=== PATIENT | female | born 1925 | race Caucasian/White ===

== ENCOUNTER 2016-06-30 17:32 | Inpatient (IN) | payer OTHER, BC ==
[~2016-06-30] VITALS: Ht 165.1 cm; Wt 60.5 kg
[~2016-06-30 17:32] MED LIST: ACETAMINOPHEN500 MG PO; AMLODIPINE BESYL5 MG PO; ASPIRIN325 MG PO; ATENOLOL50 MG PO; CLONAZEPAM0.5 MG PO; HYDROCHLOROTHIA25 MG PO; LOVASTATIN20 MG PO; MAG-OXIDE400 MG PO; METFORMIN HCL500 MG PO; OMEPRAZOLE20 MG PO; VITAMIN D PO
[2016-06-30 18:11] LABS: HEMATOCRIT 42.4 % (36.0-46.0); MCH 25.4 PG (29.0-34.0); MCHC 31.1 G/DL (30.0-36.0); MCV 81.5 FL (83-99); MEAN PLAT.VOLUME 10.5 uM^3 (9.5-12.4); PLATELET COUNT 271 K/uL (156-360); RBC DIS.WIDTH-SD 44.3 % (39-53)
[2016-06-30 18:22] LABS: CHLORIDE 100 mEq/L (99-109); INTER. NORMALIZED RATIO 1.1; POTASSIUM 4.2 mEq/L (3.7-5.4); PROTHROMBIN TIME 10.7 (9.2-11.2); PTT 26.2 (25-32); SODIUM 139 mEq/L (136-147)
[2016-06-30 18:23] LABS: GLUCOSE 193 mg/dL (70-99)
[2016-06-30 18:25] LABS: ANION GAP 13 MEQ/L (2-14)
[2016-06-30 18:27] LABS: GFR ESTIMATE (CALCULATED) > 59 mL/min/
[2016-06-30 18:28] LABS: UREA NITROGEN (BUN) 22 mg/dL (9-23)
[2016-06-30] MEDS ORDERED: VITAMIN D-3 401 EACH PO (19:46)
[2016-06-30] MEDS ORDERED: FERROUS SULFAT325 MG PO (19:47)
[2016-06-30 22:38] LABS: HEMATOCRIT 39.6 % (36.0-46.0); MCH 25.7 PG (29.0-34.0); MCHC 31.6 G/DL (30.0-36.0); MCV 81.3 FL (83-99); MEAN PLAT.VOLUME 10.7 uM^3 (9.5-12.4); PLATELET COUNT 303 K/uL (156-360); RBC DIS.WIDTH-SD 44.3 % (39-53); RED BLOOD COUNT 4.87 M/uL (3.80-5.20); WHITE BLOOD COUNT 22.1 K/uL (4.1-10.2)
[2016-07-01 00:24] VITALS: BP 145/65
[2016-07-01 05:44] LABS: ANION GAP 11 MEQ/L (2-14); CHLORIDE 100 MEQ/L (99-109); GFR ESTIMATE (CALCULATED) > 59 mL/min/; GLUCOSE 236 mg/dL (70-99); POTASSIUM 4.7 MEQ/L (3.7-5.4); SAMPLE HEMOLYSIS CHECK 0; SAMPLE ICTERIC CHECK 0; SAMPLE LIPEMIA CHECK 0; SODIUM 142 MEQ/L (136-147); UREA NITROGEN (BUN) 24 mg/dL (9-23)
[2016-07-01 07:21] VITALS: BP 122/62
[2016-07-01 08:46] LABS: HEMATOCRIT 39.9 % (36.0-46.0); MCHC 30.1 G/DL (30.0-36.0); MCV 83.1 FL (83-99); MEAN PLAT.VOLUME 11.1 uM^3 (9.5-12.4); PLATELET COUNT 276 K/uL (156-360); RBC DIS.WIDTH-CV 15.3 % (11.8-14.6); RBC DIS.WIDTH-SD 46.6 % (39-53); WHITE BLOOD COUNT 16.4 K/uL (4.1-10.2)
[2016-07-01 10:51] LABS: ADD MIUA? YES; BILIRUBIN NEGATIVE; BLOOD NEGATIVE; COLOR YELLOW ((YELLOW)); GLUCOSE (STRIP) NEGATIVE; KETONES 20; LEUKOCYTES NEGATIVE; NITRITE NEGATIVE; PROTEIN (STRIP) NEGATIVE; SPECIFIC GRAVITY 1.024 (1.000-1.030); UROBILINOGEN 0.2 MG/DL (0.2-1.0)
[2016-07-01 11:06] LABS: BACTERIA NONE SEEN /HPF; CALCIUM OXALATE CRYSTALS 1+ /HPF; EPITHELIAL CELLS NONE SEEN /HPF; MUCUS 2+ /LPF; RED BLOOD CELLS NONE SEEN /HPF (0-5); WHITE BLOOD CELLS 0-5 /HPF (0-5)
[2016-07-01 11:38] VITALS: BP 126/68
[2016-07-01 15:19] LABS: POINT-OF-CARE METER ID UU13113675
[2016-07-01 17:00] VITALS: BP 128/59
[2016-07-01 19:26] VITALS: BP 116/54
[2016-07-01 23:57] VITALS: BP 106/49
[2016-07-02 02:48] VITALS: BP 106/51
[2016-07-02 05:59] LABS: ANION GAP 13 MEQ/L (2-14); CHLORIDE 97 MEQ/L (99-109); GFR ESTIMATE (CALCULATED) 45 mL/min/; GLUCOSE 199 mg/dL (70-99); SAMPLE HEMOLYSIS CHECK 0; SAMPLE ICTERIC CHECK 0; SAMPLE LIPEMIA CHECK 0; SODIUM 137 MEQ/L (136-147); UREA NITROGEN (BUN) 32 mg/dL (9-23)
[2016-07-02 06:14] LABS: HEMATOCRIT 30.5 % (36.0-46.0); MCHC 29.8 G/DL (30.0-36.0); MCV 83.8 FL (83-99); MEAN PLAT.VOLUME 11.5 uM^3 (9.5-12.4); PLATELET COUNT 214 K/uL (156-360); RBC DIS.WIDTH-CV 15.1 % (11.8-14.6); RBC DIS.WIDTH-SD 45.6 % (39-53); WHITE BLOOD COUNT 12.3 K/uL (4.1-10.2)
[2016-07-02 06:21] LABS: RED BLOOD COUNT 3.64 M/uL (3.80-5.20)
[2016-07-02 06:34] LABS: Estimated Average Glucose 137 mg/dL (70-123); HEMOGLOBIN A1c (GLYCOHEMOGLOB) 6.4 % HGB (Below 5.7)
[2016-07-02 06:46] LABS: POINT-OF-CARE METER ID UU14149397
[2016-07-02 07:15] VITALS: BP 97/51
[2016-07-02 11:10] VITALS: BP 105/56
[2016-07-02 11:25] LABS: POINT-OF-CARE METER ID UU14149397
[2016-07-02 15:00] VITALS: BP 107/54
[2016-07-02 19:36] VITALS: BP 119/58
[2016-07-02 23:41] VITALS: BP 116/56
[2016-07-03 03:28] VITALS: BP 129/58
[2016-07-03 04:59] LABS: EOSINOPHIL (%) 0.6 % (0-5); EOSINOPHIL COUNT 0.1 K/uL (0-0.3); HEMATOCRIT 28.9 % (36.0-46.0); IMMATURE GRANULOCYTE (%) 0.5 % (0.0-0.7); IMMATURE GRANULOCYTE COUNT 0.1 K/uL; INSTRUMENT ABS NEUTROPHIL CT 8.8 K/uL; LYMPHOCYTE COUNT 2.3 K/uL (1.0-2.8); MCH 25.6 PG (29.0-34.0); MCHC 30.8 G/DL (30.0-36.0); MEAN PLAT.VOLUME 10.8 uM^3 (9.5-12.4); NEUTROPHIL (%) 71.8 % (45-76); NEUTROPHIL COUNT 8.8 K/uL (1.8-6.4); PLATELET COUNT 240 K/uL (156-360); RBC DIS.WIDTH-CV 14.8 % (11.8-14.6); RBC DIS.WIDTH-SD 44.6 % (39-53); RED BLOOD COUNT 3.48 M/uL (3.80-5.20); WHITE BLOOD COUNT 12.3 K/uL (4.1-10.2)
[2016-07-03 05:23] LABS: CHLORIDE 100 mEq/L (99-109); POTASSIUM 4.4 mEq/L (3.7-5.4); SODIUM 137 mEq/L (136-147)
[2016-07-03 05:24] LABS: GLUCOSE 124 mg/dL (70-99)
[2016-07-03 05:26] LABS: ANION GAP 8 MEQ/L (2-14)
[2016-07-03 05:28] LABS: GFR ESTIMATE (CALCULATED) > 59 mL/min/
[2016-07-03 05:29] LABS: UREA NITROGEN (BUN) 26 mg/dL (9-23)
[2016-07-03 07:20] VITALS: BP 126/59
[2016-07-03 11:20] VITALS: BP 106/53
[2016-07-03 15:00] VITALS: BP 125/60
[2016-07-03 16:16] LABS: POINT-OF-CARE METER ID UU14188577
[2016-07-03 19:30] VITALS: BP 126/60
[2016-07-04 04:00] VITALS: BP 100/55
[2016-07-04 05:28] LABS: EOSINOPHIL (%) 1.2 % (0-5); EOSINOPHIL COUNT 0.1 K/uL (0-0.3); HEMATOCRIT 24.2 % (36.0-46.0); IMMATURE GRANULOCYTE (%) 0.5 % (0.0-0.7); INSTRUMENT ABS NEUTROPHIL CT 6.2 K/uL; LYMPHOCYTE COUNT 1.2 K/uL (1.0-2.8); MCH 25.6 PG (29.0-34.0); MCHC 30.6 G/DL (30.0-36.0); MCV 83.7 FL (83-99); MEAN PLAT.VOLUME 10.2 uM^3 (9.5-12.4); MONOCYTE COUNT 0.7 K/uL (0-0.8); NEUTROPHIL (%) 75.4 % (45-76); NEUTROPHIL COUNT 6.2 K/uL (1.8-6.4); PLATELET COUNT 176 K/uL (156-360); RBC DIS.WIDTH-CV 14.5 % (11.8-14.6); RBC DIS.WIDTH-SD 44.1 % (39-53); RED BLOOD COUNT 2.89 M/uL (3.80-5.20)
[2016-07-04 05:29] LABS: WHITE BLOOD COUNT 8.3 K/uL (4.1-10.2)
[2016-07-04 05:52] LABS: ANION GAP 5 MEQ/L (2-14); CHLORIDE 100 MEQ/L (99-109); GFR ESTIMATE (CALCULATED) > 59 mL/min/; GLUCOSE 133 mg/dL (70-99); SAMPLE HEMOLYSIS CHECK 0; SAMPLE ICTERIC CHECK 0; SAMPLE LIPEMIA CHECK 0; SODIUM 137 MEQ/L (136-147); UREA NITROGEN (BUN) 21 mg/dL (9-23)
[2016-07-04 07:50] LABS: POINT-OF-CARE METER ID UU14149397
[2016-07-04 07:56] VITALS: BP 115/57
[2016-07-04 10:09] LABS: MCV 83.3 FL (83-99)
[2016-07-04 11:35] VITALS: BP 99/53
[2016-07-04 15:38] VITALS: BP 115/52
[2016-07-04 16:53] LABS: POINT-OF-CARE METER ID UU14149397
[2016-07-04 19:30] VITALS: BP 140/64
[2016-07-04 21:32] LABS: POINT-OF-CARE METER ID UU14149397
[2016-07-04 23:51] VITALS: BP 132/62
[2016-07-05] VITALS (8 sets, daily range): BP systolic 97–120; BP diastolic 50–61
[2016-07-05 06:32] LABS: MCV 83.1 FL (83-99)
[2016-07-05 09:59] LABS: IMM.RETIC FRACTION 29.9 % (3-19); RETIC HGB EQUIVALENT 25.5 (28-36)
[2016-07-05 10:08] LABS: LACTATE DEHYDROGENASE 175 IU/L (20-246)
[2016-07-05 10:23] LABS: IRON 23 MCG/DL (35-150)
[2016-07-05 11:23] LABS: FERRITIN 54 NG/ML (10-291)
[2016-07-05 14:16] LABS: EOSINOPHIL (%) 0.4 % (0-5); HEMATOCRIT 25.3 % (36.0-46.0); IMMATURE GRANULOCYTE (%) 0.5 % (0.0-0.7); IMMATURE GRANULOCYTE COUNT 0.1 K/uL; INSTRUMENT ABS NEUTROPHIL CT 7.9 K/uL; LYMPHOCYTE COUNT 1.5 K/uL (1.0-2.8); MCH 25.8 PG (29.0-34.0); MCHC 30.8 G/DL (30.0-36.0); MCV 83.8 FL (83-99); MEAN PLAT.VOLUME 10.5 uM^3 (9.5-12.4); MONOCYTE (%) 8.5 % (3-12); MONOCYTE COUNT 0.9 K/uL (0-0.8); NEUTROPHIL (%) 76.1 % (45-76); NEUTROPHIL COUNT 7.9 K/uL (1.8-6.4); PLATELET COUNT 279 K/uL (156-360); RBC DIS.WIDTH-CV 14.5 % (11.8-14.6); RBC DIS.WIDTH-SD 43.8 % (39-53); RED BLOOD COUNT 3.02 M/uL (3.80-5.20); WHITE BLOOD COUNT 10.3 K/uL (4.1-10.2)
[2016-07-06 04:21] VITALS: BP 110/53
[2016-07-06 05:11] LABS: HEMATOCRIT 27.9 % (36.0-46.0); MCHC 30.1 G/DL (30.0-36.0); MEAN PLAT.VOLUME 9.8 uM^3 (9.5-12.4); PLATELET COUNT 258 K/uL (156-360); RBC DIS.WIDTH-CV 14.7 % (11.8-14.6); RBC DIS.WIDTH-SD 43.6 % (39-53); RED BLOOD COUNT 3.36 M/uL (3.80-5.20); WHITE BLOOD COUNT 7.9 K/uL (4.1-10.2)
[2016-07-06 07:29] VITALS: BP 114/58
[2016-07-06] MEDS ORDERED: ENDOCET 5-3251 EACH PO (09:33)
[2016-07-06] MEDS ORDERED: HYDROCORTISONE30 G2 PR (09:33)
[2016-07-06] MEDS ORDERED: SENNA PLUS TAB1 EACH PO (09:33)
[2016-07-06] MEDS ORDERED: PAIN RELIEF325 M1 PO (11:55)
[2016-07-06] MEDS ORDERED: MIRALAX17 GM PO (12:00)
[2016-07-06] MEDS ORDERED: LOVENOX40 MG/0.4 SC (12:01)
[2016-07-06] MEDS ORDERED: THERAGRAN1 TABLET PO (12:02)
[2016-07-06] MEDS ORDERED: LEVEMIR100 UNIT/2 SC (12:03)
[2016-07-06] MEDS ORDERED: PRAVACHOL40 MG PO (12:03)
[2016-07-06] MEDS ORDERED: DUONEB 2.5-0.5 M3 ML AEROSOL (12:05)
[2016-07-06] MEDS ORDERED: NOVOLOG PE100 UNITS/ SC (12:06)
[2016-07-06] MEDS ORDERED: PROTONIX40 MG PO (12:06)
[2016-07-06] MEDS ORDERED: ZOFRAN4 MG PO (12:07)
== END 2016-07-06 11:15 | DRG 481 ==
LOC: EME 17:32 → 3EAST 21:02 → EDOF 21:02 → 3EAST 23:30
PROVIDERS: Emergency Medicine; Hospitalist; Internal Medicine; Nurse Practitioner Family; Orthopaedic Surgery Sports Medicine; Physician Assistant; Student in an Organized Health Care Education/Training Program
PROC: 0QS636Z Reposition Right Upper Femur with Intramedullary Internal Fixation Device, Percutaneous Approach (ICD-10-PCS; principal; 2016-07-01)
PROC: 30233N1 Transfusion of Nonautologous Red Blood Cells into Peripheral Vein, Percutaneous Approach (ICD-10-PCS; 2016-07-05)
DX: S72.141A Displaced intertrochanteric fracture of right femur, initial encounter for closed fracture (principal); I10 Essential (primary) hypertension; I25.10 Atherosclerotic heart disease of native coronary artery without angina pectoris; D72.829 Elevated white blood cell count, unspecified; D50.9 Iron deficiency anemia, unspecified; R09.02 Hypoxemia; J98.11 Atelectasis; D62 Acute posthemorrhagic anemia; E11.42 Type 2 diabetes mellitus with diabetic polyneuropathy; Z85.89 Personal history of malignant neoplasm of other organs and systems; Z86.74 Personal history of sudden cardiac arrest; W18.09XA Striking against other object with subsequent fall, initial encounter; Y92.512 Supermarket, store or market as the place of occurrence of the external cause; Z95.810 Presence of automatic (implantable) cardiac defibrillator; Z87.891 Personal history of nicotine dependence; K21.9 Gastro-esophageal reflux disease without esophagitis; Z79.4 Long term (current) use of insulin; J44.1 Chronic obstructive pulmonary disease with (acute) exacerbation; R94.31 Abnormal electrocardiogram [ECG] [EKG]
CPT/HCPCS: 70450; 71010; 73080; 73502; 73552; 76000; 80048; 81003; 82607; 82728; 82746; 82948; 83036; 83540; 83615; 84466; 85014; 85018; 85025; 85027; 85045; 85610; 85730; 86900; 86901; 86920; 87040; 93005; 94799; 97530 GP; 99202; 99281; 99284; C1713; J0330; J0690; J0696; J1170; J1650; J1815; J2270; J2405; J2765; J7050; P9016

== ENCOUNTER 2016-07-05 15:55 | Inpatient (IN) | payer OTHER, BC ==
[~2016-07-05] VITALS: Ht 165.1 cm; Wt 56.7 kg
[~2016-07-05 15:55] MED LIST changes: +FERROUS SULFAT325 MG PO; +VITAMIN D-3 401 EACH PO
[2016-07-06] MEDS ORDERED: ENDOCET 5-3251 EACH PO (09:33)
[2016-07-06] MEDS ORDERED: SENNA PLUS TAB1 EACH PO (09:33)
[2016-07-06] MEDS ORDERED: HYDROCORTISONE30 G2 PR (09:33)
[2016-07-06] MEDS ORDERED: PAIN RELIEF325 M1 PO (11:55)
[2016-07-06 12:00] LABS: POINT-OF-CARE METER ID UU13113720; POINT-OF-CARE USER ID AHSSSJB31
[2016-07-06] MEDS ORDERED: MIRALAX17 GM PO (12:00)
[2016-07-06] MEDS ORDERED: LOVENOX40 MG/0.4 SC (12:01)
[2016-07-06] MEDS ORDERED: THERAGRAN1 TABLET PO (12:02)
[2016-07-06] MEDS ORDERED: PRAVACHOL40 MG PO (12:03)
[2016-07-06] MEDS ORDERED: LEVEMIR100 UNIT/2 SC (12:03)
[2016-07-06] MEDS ORDERED: DUONEB 2.5-0.5 M3 ML AEROSOL (12:05)
[2016-07-06] MEDS ORDERED: PROTONIX40 MG PO (12:06)
[2016-07-06] MEDS ORDERED: NOVOLOG PE100 UNITS/ SC (12:06)
[2016-07-06] MEDS ORDERED: ZOFRAN4 MG PO (12:07)
[2016-07-06 13:04] VITALS: BP 114/56
[2016-07-06 15:25] VITALS: BP 113/55
[2016-07-06 17:10] LABS: POINT-OF-CARE METER ID UU14174215; POINT-OF-CARE USER ID AHSSSJB31
[2016-07-06 21:47] LABS: POINT-OF-CARE METER ID UU13113720
[2016-07-07] VITALS: BP 133/60
[2016-07-07 04:58] VITALS: BP 133/60
[2016-07-07 05:33] LABS: HEMATOCRIT 29.1 % (36.0-46.0); MCH 25.4 PG (29.0-34.0); MCHC 29.9 G/DL (30.0-36.0); MCV 85.1 FL (83-99); MEAN PLAT.VOLUME 10.2 uM^3 (9.5-12.4); NRBC (%) 0.2 /100 WBC (0-0); PLATELET COUNT 298 K/uL (156-360); RBC DIS.WIDTH-SD 45.3 % (39-53); RED BLOOD COUNT 3.42 M/uL (3.80-5.20); WHITE BLOOD COUNT 8.8 K/uL (4.1-10.2)
[2016-07-07 05:52] LABS: ALKALINE PHOSPHATASE 52 IU/L (3-129); ANION GAP 5 MEQ/L (2-14); CHLORIDE 101 MEQ/L (99-109); GFR ESTIMATE (CALCULATED) > 59 mL/min/; GLUCOSE 129 mg/dL (70-99); POTASSIUM 4.2 MEQ/L (3.7-5.4); SAMPLE HEMOLYSIS CHECK 0; SAMPLE ICTERIC CHECK 0; SAMPLE LIPEMIA CHECK 0; SODIUM 140 MEQ/L (136-147); TOTAL BILIRUBIN 0.7 MG/DL (0.0-1.0); UREA NITROGEN (BUN) 17 mg/dL (9-23)
[2016-07-07 07:05] LABS: POINT-OF-CARE METER ID UU13113720
[2016-07-07 11:15] LABS: POINT-OF-CARE METER ID UU13113720
[2016-07-07 15:00] VITALS: BP 105/52
[2016-07-07 16:26] LABS: POINT-OF-CARE METER ID UU13113720
[2016-07-07 21:30] LABS: POINT-OF-CARE METER ID UU14174215
[2016-07-08 05:12] VITALS: BP 149/66
[2016-07-08 06:46] LABS: POINT-OF-CARE METER ID UU13113720; POINT-OF-CARE USER ID ENVGAF
[2016-07-08 11:30] LABS: POINT-OF-CARE METER ID UU13113720; POINT-OF-CARE USER ID ENVGAF
[2016-07-08 16:27] LABS: POINT-OF-CARE METER ID UU13113720
[2016-07-08 21:35] LABS: POINT-OF-CARE METER ID UU14174215
[2016-07-09 04:22] VITALS: BP 129/60
[2016-07-09 08:01] LABS: POINT-OF-CARE METER ID UU14174215; POINT-OF-CARE USER ID AHSSSJB31
[2016-07-09 11:33] LABS: POINT-OF-CARE METER ID UU14174215
[2016-07-09 16:33] LABS: POINT-OF-CARE METER ID UU13113720
[2016-07-09 21:03] LABS: POINT-OF-CARE METER ID UU13113720
[2016-07-10 05:29] VITALS: BP 118/59
[2016-07-10 07:51] LABS: POINT-OF-CARE METER ID UU14174215; POINT-OF-CARE USER ID AHSSSJB31
[2016-07-10 11:28] LABS: POINT-OF-CARE METER ID UU14174215; POINT-OF-CARE USER ID AHSSSJB31
[2016-07-10 15:28] VITALS: BP 105/51
[2016-07-10 16:36] LABS: POINT-OF-CARE METER ID UU14174215
[2016-07-10 21:31] LABS: POINT-OF-CARE METER ID UU14174215
[2016-07-11 04:56] VITALS: BP 120/68
[2016-07-11 07:48] LABS: POINT-OF-CARE METER ID UU14174215
[2016-07-11 11:28] LABS: POINT-OF-CARE METER ID UU14174215; POINT-OF-CARE USER ID AHSSSJB31
[2016-07-11 15:00] VITALS: BP 119/51
[2016-07-11 16:48] LABS: POINT-OF-CARE METER ID UU14174215
[2016-07-11 21:22] LABS: POINT-OF-CARE METER ID UU14174215
[2016-07-12 05:01] VITALS: BP 127/59
[2016-07-12 07:19] LABS: POINT-OF-CARE METER ID UU14174215; POINT-OF-CARE USER ID ENVGAF
[2016-07-12 11:37] LABS: POINT-OF-CARE METER ID UU14174215; POINT-OF-CARE USER ID AHSSSJB31
[2016-07-12 15:51] VITALS: BP 111/46
[2016-07-12 16:14] LABS: POINT-OF-CARE METER ID UU14174215
[2016-07-12 21:27] LABS: POINT-OF-CARE METER ID UU14174215
[2016-07-13 05:18] VITALS: BP 124/53
[2016-07-13 07:20] LABS: POINT-OF-CARE METER ID UU14174215; POINT-OF-CARE USER ID ENVGAF
[2016-07-13 11:11] LABS: POINT-OF-CARE METER ID UU14174215; POINT-OF-CARE USER ID ENVGAF
[2016-07-13] MEDS ORDERED: LEVEMIR100 UNIT/2 SC (14:30)
[2016-07-13] MEDS ORDERED: VITAMIN D-32000 UNI2 PO (14:31)
[2016-07-13] MEDS ORDERED: ACETAMINOPHEN-1 EAC1 PO (14:31)
[2016-07-13] MEDS ORDERED: FOLIC ACID1 MG PO (14:31)
[2016-07-13] MEDS ORDERED: ASCORBIC ACID500 M3 PO (14:31)
[2016-07-13 15:21] LABS: ANION GAP 9 MEQ/L (2-14); CHLORIDE 100 MEQ/L (99-109); GFR ESTIMATE (CALCULATED) > 59 mL/min/; GLUCOSE 158 mg/dL (70-99); POTASSIUM 4.6 MEQ/L (3.7-5.4); SAMPLE HEMOLYSIS CHECK 0; SAMPLE ICTERIC CHECK 0; SAMPLE LIPEMIA CHECK 0; SODIUM 137 MEQ/L (136-147); UREA NITROGEN (BUN) 13 mg/dL (9-23)
[2016-07-13 15:22] LABS: HEMATOCRIT 34.4 % (36.0-46.0); MCH 26.4 PG (29.0-34.0); MCHC 29.4 G/DL (30.0-36.0); MEAN PLAT.VOLUME 9.6 uM^3 (9.5-12.4); PLATELET COUNT 380 K/uL (156-360); RBC DIS.WIDTH-CV 18.6 % (11.8-14.6); RBC DIS.WIDTH-SD 58.2 % (39-53); RED BLOOD COUNT 3.82 M/uL (3.80-5.20)
[2016-07-13 15:23] LABS: MCV 90.1 FL (83-99); WHITE BLOOD COUNT 11.8 K/uL (4.1-10.2)
[2016-07-13 16:05] VITALS: BP 115/51
[2016-07-13 16:41] LABS: POINT-OF-CARE METER ID UU13113720
[2016-07-13 20:51] LABS: POINT-OF-CARE METER ID UU14174215
[2016-07-14 05:02] VITALS: BP 127/59
[2016-07-14 07:24] LABS: POINT-OF-CARE METER ID UU13113720
[2016-07-14 11:45] LABS: POINT-OF-CARE METER ID UU14174215
== END 2016-07-14 14:02 | DRG 560 ==
LOC: 3WEST 15:55
PROVIDERS: Physical Medicine & Rehabilitation Pain Medicine
PROC: F07M0ZZ Range of Motion and Joint Mobility Treatment of Musculoskeletal System - Whole Body (ICD-10-PCS; principal; 2016-07-06)
DX: S72.141D Displaced intertrochanteric fracture of right femur, subsequent encounter for closed fracture with routine healing (principal); W18.30XD Fall on same level, unspecified, subsequent encounter; Z47.89 Encounter for other orthopedic aftercare; S52.021D Displaced fracture of olecranon process without intraarticular extension of right ulna, subsequent encounter for closed fracture with routine healing; G89.18 Other acute postprocedural pain; D62 Acute posthemorrhagic anemia; I10 Essential (primary) hypertension; E78.5 Hyperlipidemia, unspecified; E11.42 Type 2 diabetes mellitus with diabetic polyneuropathy; Z95.0 Presence of cardiac pacemaker; J44.9 Chronic obstructive pulmonary disease, unspecified; D72.829 Elevated white blood cell count, unspecified; E83.51 Hypocalcemia; E77.8 Other disorders of glycoprotein metabolism; E88.09 Other disorders of plasma-protein metabolism, not elsewhere classified; Z86.74 Personal history of sudden cardiac arrest; I25.10 Atherosclerotic heart disease of native coronary artery without angina pectoris; Z74.09 Other reduced mobility; Z87.891 Personal history of nicotine dependence; K59.00 Constipation, unspecified; M16.11 Unilateral primary osteoarthritis, right hip
CPT/HCPCS: 73080; 73200; 73552; 80048; 80053; 82948; 85027; 94010; 94760; 94799; 97110 GO; 97530 GP; 99202; J1650; J1815

== ENCOUNTER 2017-04-09 01:32 | Emergency (ER) | payer OTHER, BC ==
[~2017-04-09] VITALS: Ht 165.1 cm; Wt 60.5 kg
[~2017-04-09 01:32] MED LIST changes: +ACETAMINOPHEN-1 EAC1 PO; +ASCORBIC ACID500 M3 PO; +DUONEB 2.5-0.5 M3 ML AEROSOL; +ENDOCET 5-3251 EACH PO; +FOLIC ACID1 MG PO; +HYDROCORTISONE30 G2 PR; +LEVEMIR100 UNIT/2 SC; +LOVENOX40 MG/0.4 SC; +MIRALAX17 GM PO; +NOVOLOG PE100 UNITS/ SC; +PAIN RELIEF325 M1 PO; +PRAVACHOL40 MG PO; +PROTONIX40 MG PO; +SENNA PLUS TAB1 EACH PO; +THERAGRAN1 TABLET PO; +VITAMIN D-32000 UNI2 PO; +ZOFRAN4 MG PO
[2017-04-09] MEDS ORDERED: FLEXERIL10 MG PO (01:58)
[2017-04-09 02:38] VITALS: BP 143/70
== END 2017-04-09 02:39 | disposition home or self-care (01) ==
LOC: EME → EDBD 01:32 → EME 02:39
DX: S76.012A Strain of muscle, fascia and tendon of left hip, initial encounter (principal); W01.0XXA Fall on same level from slipping, tripping and stumbling without subsequent striking against object, initial encounter; Y93.01 Activity, walking, marching and hiking; Y92.002 Bathroom of unspecified non-institutional (private) residence as the place of occurrence of the external cause; M81.0 Age-related osteoporosis without current pathological fracture; M19.90 Unspecified osteoarthritis, unspecified site; Z87.891 Personal history of nicotine dependence; I10 Essential (primary) hypertension; F41.9 Anxiety disorder, unspecified; E11.9 Type 2 diabetes mellitus without complications; Z86.74 Personal history of sudden cardiac arrest; Z79.84 Long term (current) use of oral hypoglycemic drugs; Z79.4 Long term (current) use of insulin; Z79.82 Long term (current) use of aspirin
CPT/HCPCS: 73502; 99281; 99284